=== PATIENT | female | born 1950 | race Caucasian/White ===

== ENCOUNTER 2017-08-04 18:40 | Emergency (ER) | payer MEDICARE, OTHER ==
[~2017-08-04] VITALS: Ht 167.6 cm; Wt 75.0 kg
[~2017-08-04 18:40] MED LIST: AMLO2.5T PO; ASPI-1198 PO; BENA20TA3 PO; CARV25 PO; GABA300C PO; NALT50TA10 PO; SERT50TA12 PO; TOPI25 PO; TRAZ-147 PO; ZOLP5 PO
[2017-08-04] MEDS ORDERED: LISI-660 PO (19:01)
[2017-08-04] MEDS ORDERED: LOPERAMIDE HCL 2 MG CAPSULE PO ONE (19:15)
[2017-08-04] MEDS ORDERED: SODIUM CHLORIDE 0.9% 1,000 ML IV ONE (19:15)
[2017-08-04 19:38] LABS: BASOPHILS % (AUTO) 0.7 % (0.0-2.0); EOSINOPHILS % (AUTO) 2.2 % (1.0-6.0); HEMATOCRIT 37.9 % (36-46); HEMOGLOBIN 13.4 g/dL (12.0-16.0); LYMPHOCYTES # (AUTO) 1.3 K/uL (1.0-4.8); LYMPHOCYTES % (AUTO) 29.4 % (22.0-44.0); MEAN CORPUSCULAR HEMOGLOBIN 33.9 pg (26.0-34.0); MEAN CORPUSCULAR HGB CONC 35.2 G/dL (31.0-37.0); MEAN CORPUSCULAR VOLUME 96 fL (80-100); MONOCYTES # (AUTO) 0.4 K/uL (0.1-1.0); MONOCYTES % (AUTO) 8.8 % (2.0-9.0); NEUTROPHILS # (AUTO) 2.6 K/uL (1.8-7.7); NEUTROPHILS % (AUTO) 58.9 % (40.0-70.0); PLATELET COUNT (AUTO) 101 K/uL (150-450); RED BLOOD CELL COUNT(AUTO) 3.94 MIL/uL (4.00-5.20); RED CELL DISTRIBUTION WIDTH 13.5 % (11.5-14.5); WHITE BLOOD COUNT (AUTO) 4.5 K/uL (4.5-11.0)
[2017-08-04 19:44] LABS: CALCIUM, TOTAL 8.7 mg/dL (8.8-10.5); CREATININE 1.1 mg/dL (0.60-1.30); POTASSIUM 3.5 mmol/L (3.5-5.1)
[2017-08-04 19:55] LABS: ALBUMIN 3.1 g/dL (3.4-5.0); BILIRUBIN,TOTAL 1.3 mg/dL (0.1-1.0); TOTAL PROTEIN, SERUM 8.2 g/dL (6.4-8.2)
[2017-08-04 20:25] VITALS: BP 110/71
== END 2017-08-04 21:24 | disposition home or self-care (01) ==
LOC: EMS 18:42
DX: E86.0 Dehydration (principal); R19.7 Diarrhea, unspecified; R53.1 Weakness
CPT/HCPCS: 36415; 80053; 85025; 93005; 96360; 96361; 99285; J7030

== ENCOUNTER 2019-09-19 13:01 | Inpatient (IN) | payer MEDICARE, OTHER ==
[~2019-09-19] VITALS: Ht 165.1 cm; Wt 82.8 kg
[~2019-09-19 13:01] MED LIST changes: -AMLO2.5T PO; +AMLO2.5T4 PO; +BENA20TA10 PO; -BENA20TA3 PO; +LISI-660 PO; -TRAZ-147 PO; +TRAZ-220 PO
[2019-09-19 13:53] LABS: GLUCOSE,POINT OF CARE 176 MG/DL (70-110)
[2019-09-19 14:55] LABS: BASOPHILS % (AUTO) 1.4 % (0.0-2.0); EOSINOPHILS % (AUTO) 2.4 % (1.0-6.0); HEMATOCRIT 42.3 % (36-46); HEMOGLOBIN 14.5 g/dL (12.0-16.0); LYMPHOCYTES # (AUTO) 1.3 K/uL (1.0-4.8); LYMPHOCYTES % (AUTO) 26.2 % (22.0-44.0); MEAN CORPUSCULAR HEMOGLOBIN 33.9 pg (26.0-34.0); MEAN CORPUSCULAR HGB CONC 34.2 G/dL (31.0-37.0); MEAN CORPUSCULAR VOLUME 99 fL (80-100); MONOCYTES # (AUTO) 0.5 K/uL (0.1-1.0); MONOCYTES % (AUTO) 9.3 % (2.0-9.0); NEUTROPHILS # (AUTO) 3.1 K/uL (1.8-7.7); NEUTROPHILS % (AUTO) 60.7 % (40.0-70.0); PLATELET COUNT (AUTO) 118 K/uL (150-450); RED BLOOD CELL COUNT(AUTO) 4.28 MIL/uL (4.00-5.20); RED CELL DISTRIBUTION WIDTH 14.1 % (11.5-14.5)
[2019-09-19 15:10] LABS: ANION GAP 11 mmol/L (8-16); CARBON DIOXIDE 22 mmol/L (22-29); CHLORIDE 106 mmol/L (98-107); POTASSIUM 3.8 mmol/L (3.5-5.1); SODIUM SERUM 139 mmol/L (136-145)
[2019-09-19 15:45] LABS: ALANINE AMINOTRANSFERASE 52 U/L (12-78); ALBUMIN 2.9 g/dL (3.4-5.0); ALKALINE PHOSPHATASE 111 U/L (46-116); ASPARTATE AMINOTRANSFERASE 87 U/L (15-37); BILIRUBIN,TOTAL 1.4 mg/dL (0.1-1.0); CALCIUM, TOTAL 8.5 mg/dL (8.8-10.5); CREATINE KINASE, TOTAL ONLY 57 U/L (26-192); CREATININE 0.91 mg/dL (0.60-1.30); GLOMERULAR FILTR. RATE CALC > 60 mL/min (>60); GLUCOSE,RANDOM 160 mg/dL (70-110); TOTAL PROTEIN, SERUM 8.4 g/dL (6.4-8.2)
[2019-09-19 15:46] LABS: FREE T4 (FREE THYROXINE) 1.16 ng/dL (0.76-1.46); LIPASE 222 U/L (73-393); THYROID STIMULATING HORMONE 5.04 uIU/mL (0.36-3.74)
[2019-09-19 15:51] LABS: UREA NITROGEN, BLOOD 13 mg/dL (7-18)
[2019-09-19 16:07] LABS: LACTIC ACID 3.1 mmol/L (0.4-2.0)
[2019-09-19] MEDS ORDERED: SODIUM CHLORIDE 0.9% 2,000 ML IV ONE (16:15)
[2019-09-19] MEDS ORDERED: ACETAMINOPHEN 325 MG TABLET PO PRN ×2 (17:30→22:45)
[2019-09-19] MEDS ORDERED: ONDANSETRON HCL 4 MG/2 ML VIAL IVP PRN (17:30)
[2019-09-19] MEDS ORDERED: CefTRIAXone 1 GM/DEXTROSE 50 ML IV ONE (18:45)
[2019-09-19 19:53] LABS: APPEARANCE,URINE CLOUDY (CLEAR); BILIRUBIN,URINE NEGATIVE (NEGATIVE); GLUCOSE, URINE (UA) NEGATIVE (NEGATIVE); KETONES,URINE NEGATIVE (NEGATIVE); LEUKOCYTE ESTERASE ,URINE LARGE (NEGATIVE); NITRATE,URINE NEGATIVE (NEGATIVE); OCCULT BLOOD,URINE TRACE (NEGATIVE); PROTEIN,URINE NEGATIVE (NEGATIVE)
[2019-09-19 19:59] LABS: AMPHET/METH SCREEN,URINE NEGATIVE (NEGATIVE); BARBITURATE SCREEN, URINE NEGATIVE (NEGATIVE); BENZODIAZEPINES SCREEN,URINE NEGATIVE (NEGATIVE); CANNABINOID SCREEN,URINE POSITIVE (NEGATIVE); COCAINE SCREEN,URINE NEGATIVE (NEGATIVE); METHADONE SCREEN, URINE NEGATIVE (NEGATIVE); OPIATE SCREEN,URINE NEGATIVE (NEGATIVE); PHENCYCLIDINE SCREEN,URINE NEGATIVE (NEGATIVE)
[2019-09-19 20:37] LABS: WBC,URINE 51-100 /HPF (0-5)
[2019-09-19 20:38] LABS: BACTERIA,URINE Few /HPF (None Seen); RBC,URINE 0-2 /HPF (0-2); SQUAMOUS EPITHELIAL CELL,UR Few /LPF (None Seen)
[2019-09-19 21:45] VITALS: BP 141/71
[2019-09-19] MEDS ORDERED: ZOLPIDEM TARTRATE 5 MG TABLET PO PRN (22:45)
[2019-09-19] MEDS ORDERED: 0.9% SODIUM CHLORIDE 10 ML SYRINGE IVP PRN (22:45)
[2019-09-19] MEDS ORDERED: TraZODone HCL 100 MG TABLET PO SCH (23:00)
[2019-09-19] MEDS ORDERED: NALTREXONE HCL 50 MG TABLET PO SCH (23:00)
[2019-09-19] MEDS: SODIUM CHLORIDE 0.9% 1,000 ML IV SCH (23:17)
[2019-09-19] MEDS: HEPARIN SODIUM,PORCINE 5,000 UNITS/ML VIAL SQ SCH (23:17)
[2019-09-19] MEDS: CARVEDILOL 25 MG TABLET PO SCH (23:25)
[2019-09-19 23:30] VITALS: BP 145/65
[2019-09-20 05:21] VITALS: BP 102/48
[2019-09-20 07:25] LABS: BASOPHILS % (AUTO) 1.1 % (0.0-2.0); EOSINOPHILS % (AUTO) 2.9 % (1.0-6.0); HEMATOCRIT 35.8 % (36-46); HEMOGLOBIN 12.3 g/dL (12.0-16.0); LYMPHOCYTES # (AUTO) 1.1 K/uL (1.0-4.8); LYMPHOCYTES % (AUTO) 35.3 % (22.0-44.0); MEAN CORPUSCULAR HEMOGLOBIN 33.7 pg (26.0-34.0); MEAN CORPUSCULAR HGB CONC 34.2 G/dL (31.0-37.0); MEAN CORPUSCULAR VOLUME 99 fL (80-100); MONOCYTES # (AUTO) 0.4 K/uL (0.1-1.0); NEUTROPHILS # (AUTO) 1.5 K/uL (1.8-7.7); NEUTROPHILS % (AUTO) 48.7 % (40.0-70.0); RED BLOOD CELL COUNT(AUTO) 3.64 MIL/uL (4.00-5.20); RED CELL DISTRIBUTION WIDTH 13.9 % (11.5-14.5)
[2019-09-20 07:32] LABS: PLATELET COUNT (AUTO) 101 K/uL (150-450)
[2019-09-20 07:41] LABS: CALCIUM, TOTAL 7.9 mg/dL (8.8-10.5); CREATININE 0.94 mg/dL (0.60-1.30); MAGNESIUM 1.8 mg/dL (1.80-2.40); POTASSIUM 3.8 mmol/L (3.5-5.1)
[2019-09-20] MEDS: HEPARIN SODIUM,PORCINE 5,000 UNITS/ML VIAL SQ SCH ×2 (08:00→08:40)
[2019-09-20 08:28] VITALS: BP 119/65
[2019-09-20] MEDS: DOCUSATE SODIUM 100 MG CAPSULE PO SCH ×2 (08:39→21:07)
[2019-09-20] MEDS: ASPIRIN 81 MG CHEWABLE TABLET PO SCH ×2 (08:39→09:00)
[2019-09-20] MEDS: BENAZEPRIL HCL 20 MG TABLET PO SCH (08:39)
[2019-09-20] MEDS: AmLODIPine BESYLATE 2.5 MG TABLET PO SCH (08:39)
[2019-09-20] MEDS: CARVEDILOL 25 MG TABLET PO SCH (08:39)
[2019-09-20] MEDS: PANTOPRAZOLE SODIUM 40 MG DR TABLET PO SCH (08:40)
[2019-09-20 10:56] VITALS: BP 149/74
[2019-09-20 13:30] VITALS: BP 157/71
[2019-09-20] MEDS: ONDANSETRON HCL 4 MG/2 ML VIAL IVP PRN (15:19)
[2019-09-20 15:28] LABS: INR 1.2 (0.9-1.1); PROTHROMBIN TIME 12.1 SEC (9.4-11.6)
[2019-09-20 16:00] VITALS: BP 126/60
[2019-09-20] MEDS ORDERED: SODIUM CHLORIDE 0.9% 250 ML IV ONE (19:08)
[2019-09-20] MEDS: CefTRIAXone 1 GM/DEXTROSE 50 ML IV SCH (19:09)
[2019-09-20] MEDS: SODIUM CHLORIDE 0.9% 1,000 ML IV SCH (19:32)
[2019-09-20 20:00] VITALS: BP 100/56
[2019-09-21] VITALS: BP 127/87
[2019-09-21 04:00] VITALS: BP 127/62
[2019-09-21 08:00] VITALS: BP 145/70
[2019-09-21] MEDS: DOCUSATE SODIUM 100 MG CAPSULE PO SCH ×2 (09:00→21:33)
[2019-09-21] MEDS: PANTOPRAZOLE SODIUM 40 MG DR TABLET PO SCH (09:39)
[2019-09-21] MEDS: AmLODIPine BESYLATE 2.5 MG TABLET PO SCH (09:39)
[2019-09-21] MEDS: BENAZEPRIL HCL 20 MG TABLET PO SCH (09:39)
[2019-09-21] MEDS: SODIUM CHLORIDE 0.9% 1,000 ML IV SCH (09:52)
[2019-09-21] MEDS ORDERED: NALT50TA6 PO (10:42)
[2019-09-21] MEDS ORDERED: ZOLP10TA7 PO (10:42)
[2019-09-21 12:00] VITALS: BP 158/73
[2019-09-21 16:00] VITALS: BP 160/81
[2019-09-21] MEDS: CefTRIAXone 1 GM/DEXTROSE 50 ML IV SCH (17:55)
[2019-09-21 20:00] VITALS: BP 124/89
[2019-09-21] MEDS: HydrALAZINE HCL 20 MG/ML VIAL IVP PRN (21:51)
[2019-09-22] VITALS: BP 159/68
[2019-09-22] MEDS: SODIUM CHLORIDE 0.9% 1,000 ML IV SCH ×2 (01:40→17:39)
[2019-09-22] MEDS ORDERED: SODIUM CHLORIDE 0.9% 250 ML IV ONE (01:49)
[2019-09-22] MEDS: HydrALAZINE HCL 20 MG/ML VIAL IVP PRN ×4 (03:55→22:10)
[2019-09-22 04:00] VITALS: BP 159/66
[2019-09-22] MEDS: ONDANSETRON HCL 4 MG/2 ML VIAL IVP PRN ×2 (04:19→22:10)
[2019-09-22] MEDS ORDERED: NiCARDipine HCL 25 MG in DEXTROSE 5%-WATER 240 ML IV PRN (05:43)
[2019-09-22 06:04] LABS: BASOPHILS % (AUTO) 0.9 % (0.0-2.0); EOSINOPHILS % (AUTO) 3.3 % (1.0-6.0); HEMATOCRIT 41.3 % (36-46); HEMOGLOBIN 14.1 g/dL (12.0-16.0); LYMPHOCYTES # (AUTO) 1.3 K/uL (1.0-4.8); LYMPHOCYTES % (AUTO) 19.5 % (22.0-44.0); MEAN CORPUSCULAR HEMOGLOBIN 33.3 pg (26.0-34.0); MEAN CORPUSCULAR HGB CONC 34.1 G/dL (31.0-37.0); MEAN CORPUSCULAR VOLUME 98 fL (80-100); MONOCYTES # (AUTO) 0.5 K/uL (0.1-1.0); MONOCYTES % (AUTO) 7.7 % (2.0-9.0); NEUTROPHILS # (AUTO) 4.5 K/uL (1.8-7.7); NEUTROPHILS % (AUTO) 68.6 % (40.0-70.0); PLATELET COUNT (AUTO) 139 K/uL (150-450); RED BLOOD CELL COUNT(AUTO) 4.23 MIL/uL (4.00-5.20); RED CELL DISTRIBUTION WIDTH 13.7 % (11.5-14.5)
[2019-09-22 06:14] LABS: ANION GAP 11 mmol/L (8-16); CALCIUM, TOTAL 8.3 mg/dL (8.8-10.5); CARBON DIOXIDE 21 mmol/L (22-29); CHLORIDE 107 mmol/L (98-107); CREATININE 0.85 mg/dL (0.60-1.30); GLOMERULAR FILTR. RATE CALC > 60 mL/min (>60); GLUCOSE,RANDOM 191 mg/dL (70-110); POTASSIUM 3.4 mmol/L (3.5-5.1); SODIUM SERUM 139 mmol/L (136-145); UREA NITROGEN, BLOOD 14 mg/dL (7-18)
[2019-09-22 08:00] VITALS: BP 140/61
[2019-09-22] MEDS: DOCUSATE SODIUM 100 MG CAPSULE PO SCH ×2 (09:00→20:05)
[2019-09-22] MEDS: PANTOPRAZOLE SODIUM 40 MG DR TABLET PO SCH (10:06)
[2019-09-22] MEDS: BENAZEPRIL HCL 20 MG TABLET PO SCH (10:06)
[2019-09-22] MEDS: AmLODIPine BESYLATE 2.5 MG TABLET PO SCH (10:06)
[2019-09-22] MEDS ORDERED: DIGOXIN 250 MCG/ML 2 ML AMP IVP ONE (10:30)
[2019-09-22] MEDS ORDERED: AMIODARONE HCL 150 MG in DEXTROSE 5%-WATER 97 ML IV ONE (10:45)
[2019-09-22] MEDS ORDERED: AMIODARONE HCL 360 MG in DEXTROSE 5%-WATER 242.8 ML IV ONE (11:00)
[2019-09-22] MEDS: DIGOXIN 250 MCG/ML 2 ML AMP IVP SCH ×3 (11:02→22:11)
[2019-09-22 11:30] LABS: MAGNESIUM 1.3 mg/dL (1.80-2.40); THYROID STIMULATING HORMONE 3.91 uIU/mL (0.36-3.74)
[2019-09-22 12:00] VITALS: BP 183/89
[2019-09-22] MEDS ORDERED: MAGNESIUM OXIDE 400 MG TABLET PO PRN (12:00)
[2019-09-22] MEDS ORDERED: MAGNESIUM SULFATE 2 GM/WATER 50 ML IV PRN (12:00)
[2019-09-22] MEDS ORDERED: MAGNESIUM SULFATE 4 GM/WATER 100 ML IV PRN (12:00)
[2019-09-22] MEDS: POTASSIUM CHL 10 MEQ/WATER 50 ML IV SCH ×6 (12:20→17:39)
[2019-09-22 13:19] LABS: ALBUMIN 2.9 g/dL (3.4-5.0)
[2019-09-22 16:00] VITALS: BP 176/95
[2019-09-22] MEDS ORDERED: AMIODARONE HCL 540 MG in DEXTROSE 5%-WATER 239.2 ML IV ONE (17:00)
[2019-09-22] MEDS: CefTRIAXone 1 GM/DEXTROSE 50 ML IV SCH (17:39)
[2019-09-22 20:00] VITALS: BP 174/75
[2019-09-22 20:54] LABS: POTASSIUM 3.6 mmol/L (3.5-5.1)
[2019-09-23] VITALS (8 sets, daily range): BP systolic 113–169; BP diastolic 48–111
[2019-09-23] MEDS: HydrALAZINE HCL 20 MG/ML VIAL IVP PRN ×2 (00:19→05:51)
[2019-09-23] MEDS ORDERED: SODIUM CHLORIDE 0.9% 250 ML IV ONE ×2 (03:38→17:03)
[2019-09-23] MEDS ORDERED: AMIODARONE HCL 200 MG TABLET PO SCH (09:00)
[2019-09-23] MEDS: DOCUSATE SODIUM 100 MG CAPSULE PO SCH ×2 (10:36→21:11)
[2019-09-23] MEDS: SODIUM CHLORIDE 0.9% 1,000 ML IV SCH (10:37)
[2019-09-23] MEDS: BENAZEPRIL HCL 20 MG TABLET PO SCH (10:37)
[2019-09-23] MEDS: PANTOPRAZOLE SODIUM 40 MG DR TABLET PO SCH (10:37)
[2019-09-23] MEDS: AmLODIPine BESYLATE 2.5 MG TABLET PO SCH (10:37)
[2019-09-23] MEDS ORDERED: AMIODARONE HCL 750 MG in DEXTROSE 5%-WATER 485 ML IV SCH (11:00)
[2019-09-23] MEDS: CefTRIAXone 1 GM/DEXTROSE 50 ML IV SCH (17:11)
[2019-09-23] MEDS: METOPROLOL TARTRATE 25 MG TABLET PO SCH (21:00)
[2019-09-24] MEDS: SODIUM CHLORIDE 0.9% 1,000 ML IV SCH (03:58)
[2019-09-24 04:51] VITALS: BP 125/67
[2019-09-24 07:49] VITALS: BP 160/79
[2019-09-24] MEDS: PANTOPRAZOLE SODIUM 40 MG DR TABLET PO SCH (08:37)
[2019-09-24] MEDS: AmLODIPine BESYLATE 2.5 MG TABLET PO SCH (08:37)
[2019-09-24] MEDS: METOPROLOL TARTRATE 25 MG TABLET PO SCH ×2 (08:37→20:34)
[2019-09-24] MEDS: DOCUSATE SODIUM 100 MG CAPSULE PO SCH ×2 (08:37→20:31)
[2019-09-24] MEDS: BENAZEPRIL HCL 20 MG TABLET PO SCH (08:37)
[2019-09-24 11:13] VITALS: BP 127/56
[2019-09-24 16:47] VITALS: BP 128/60
[2019-09-24] MEDS: CefTRIAXone 1 GM/DEXTROSE 50 ML IV SCH (18:52)
[2019-09-24 20:15] VITALS: BP 139/63
[2019-09-24 23:21] VITALS: BP 157/67
[2019-09-25 04:45] VITALS: BP 150/62
[2019-09-25 07:25] VITALS: BP 130/81
[2019-09-25] MEDS: DOCUSATE SODIUM 100 MG CAPSULE PO SCH (08:21)
[2019-09-25] MEDS: BENAZEPRIL HCL 20 MG TABLET PO SCH (08:22)
[2019-09-25] MEDS: AmLODIPine BESYLATE 2.5 MG TABLET PO SCH (08:22)
[2019-09-25] MEDS: PANTOPRAZOLE SODIUM 40 MG DR TABLET PO SCH (08:22)
[2019-09-25] MEDS: METOPROLOL TARTRATE 25 MG TABLET PO SCH (08:24)
[2019-09-25] MEDS ORDERED: METO25 PO (11:27)
[2019-09-25] MEDS ORDERED: AMLO2.5T4 PO ×2 (11:27→11:37)
[2019-09-25] MEDS ORDERED: BENA20TA10 PO (11:27)
[2019-09-25 11:32] VITALS: BP 140/83
[2019-09-25 15:53] VITALS: BP 147/61
[2019-09-25] MEDS: CefTRIAXone 1 GM/DEXTROSE 50 ML IV SCH (17:48)
[2019-09-25] MEDS: ONDANSETRON HCL 4 MG/2 ML VIAL IVP PRN (19:17)
== END 2019-09-25 19:45 | DRG 64 ==
LOC: EMS 13:03 → 4E 17:52 → EMS 21:20 → ICU 09-20 15:00 → 5S 09-23 14:00
PROVIDERS: ADMIT Internal Medicine; ATTEND Internal Medicine
DX: I61.8 Other nontraumatic intracerebral hemorrhage (principal); G93.41 Metabolic encephalopathy; E87.2 Acidosis; N12 Tubulo-interstitial nephritis, not specified as acute or chronic; I48.91 Unspecified atrial fibrillation; F32.9 Major depressive disorder, single episode, unspecified; I10 Essential (primary) hypertension; E87.6 Hypokalemia; D69.6 Thrombocytopenia, unspecified; G43.909 Migraine, unspecified, not intractable, without status migrainosus; F11.10 Opioid abuse, uncomplicated; E78.00 Pure hypercholesterolemia, unspecified; F17.210 Nicotine dependence, cigarettes, uncomplicated; G47.30 Sleep apnea, unspecified; Z96.651 Presence of right artificial knee joint; F10.20 Alcohol dependence, uncomplicated; F12.90 Cannabis use, unspecified, uncomplicated; E78.5 Hyperlipidemia, unspecified; Z82.49 Family history of ischemic heart disease and other diseases of the circulatory system
CPT/HCPCS: 70450; 70551; 76770; 83605; 83735; 84132; 84439; 84443; 87081; 87086; 92610; 93005; 93306; 97116; 97162; 97166; 97530; 97535; G0378; G0480; J0282; J0360; J0696; J1160; J1644; J2405; J3475; J3480; J3490; J7030; J7050; J7060

== ENCOUNTER 2019-10-26 13:30 | Inpatient (IN) | payer MEDICARE, OTHER ==
[~2019-10-26] VITALS: Ht 162.6 cm; Wt 82.7 kg
[~2019-10-26 13:30] MED LIST changes: -ASPI-1198 PO; -CARV25 PO; -GABA300C PO; -LISI-660 PO; +METO25 PO; -NALT50TA10 PO; -SERT50TA12 PO; -TRAZ-220 PO; +TRAZ-257 PO; -ZOLP5 PO
[2019-10-26] MEDS ORDERED: CLON1PAT12 TD (13:43)
[2019-10-26] MEDS ORDERED: NYSTATIN 15 GM POWDER BOTTLE TP ONE (14:45)
[2019-10-26 15:01] LABS: BASOPHILS % (AUTO) 0.7 % (0.0-2.0); EOSINOPHILS % (AUTO) 2.5 % (1.0-6.0); HEMATOCRIT 37.8 % (36-46); HEMOGLOBIN 13.1 g/dL (12.0-16.0); LYMPHOCYTES # (AUTO) 1.1 K/uL (1.0-4.8); LYMPHOCYTES % (AUTO) 34.5 % (22.0-44.0); MEAN CORPUSCULAR HEMOGLOBIN 33.9 pg (26.0-34.0); MEAN CORPUSCULAR HGB CONC 34.6 G/dL (31.0-37.0); MEAN CORPUSCULAR VOLUME 98 fL (80-100); MONOCYTES # (AUTO) 0.4 K/uL (0.1-1.0); MONOCYTES % (AUTO) 10.8 % (2.0-9.0); NEUTROPHILS # (AUTO) 1.7 K/uL (1.8-7.7); NEUTROPHILS % (AUTO) 51.5 % (40.0-70.0); RED BLOOD CELL COUNT(AUTO) 3.87 MIL/uL (4.00-5.20); RED CELL DISTRIBUTION WIDTH 14.2 % (11.5-14.5)
[2019-10-26 15:09] LABS: CALCIUM, TOTAL 8.4 mg/dL (8.8-10.5); CREATININE 1.14 mg/dL (0.60-1.30); POTASSIUM 3.7 mmol/L (3.5-5.1)
[2019-10-26] MEDS ORDERED: CLON1PAT14 TD (15:13)
[2019-10-26] MEDS ORDERED: OMEP20 PO (15:13)
[2019-10-26 15:15] LABS: ALBUMIN 2.7 g/dL (3.4-5.0); BILIRUBIN,TOTAL 1.2 mg/dL (0.1-1.0); MAGNESIUM 1.7 mg/dL (1.80-2.40); TOTAL PROTEIN, SERUM 7.3 g/dL (6.4-8.2)
[2019-10-26 15:18] LABS: INR 1.2 (0.9-1.1); PROTHROMBIN TIME 11.7 SEC (9.4-11.6)
[2019-10-26] MEDS ORDERED: MAGNESIUM SULFATE 2 GM/WATER 50 ML IV ONE (16:00)
[2019-10-26 16:06] LABS: PLATELET COUNT (AUTO) 93 K/uL (150-450)
[2019-10-26] MEDS ORDERED: CefTRIAXone 1 GM/DEXTROSE 50 ML IV ONE ×2 (17:15→23:00)
[2019-10-26] MEDS ORDERED: VANCOMYCIN HCL 1 GM/D5% WATER 200 ML IV ONE (17:15)
[2019-10-26] MEDS ORDERED: 0.9% SODIUM CHLORIDE 10 ML SYRINGE IVP PRN (18:30)
[2019-10-26] MEDS ORDERED: ACETAMINOPHEN 325 MG TABLET PO PRN ×2 (18:30→23:00)
[2019-10-26] MEDS ORDERED: ONDANSETRON HCL 4 MG/2 ML VIAL IVP PRN ×2 (18:30→23:00)
[2019-10-26 20:41] LABS: APPEARANCE,URINE CLOUDY (CLEAR); BILIRUBIN,URINE NEGATIVE (NEGATIVE); GLUCOSE, URINE (UA) NEGATIVE (NEGATIVE); KETONES,URINE NEGATIVE (NEGATIVE); LEUKOCYTE ESTERASE ,URINE MODERATE (NEGATIVE); NITRATE,URINE POSITIVE (NEGATIVE); OCCULT BLOOD,URINE NEGATIVE (NEGATIVE); PROTEIN,URINE NEGATIVE (NEGATIVE)
[2019-10-26 21:20] VITALS: BP 144/74
[2019-10-26 21:37] LABS: BACTERIA,URINE Many /HPF (None Seen); RBC,URINE None Seen /HPF (0-2); SQUAMOUS EPITHELIAL CELL,UR Moderate /LPF (None Seen); WBC,URINE 51-100 /HPF (0-5)
[2019-10-26] MEDS ORDERED: MAGNESIUM HYDROXIDE SUSPENSION 30 ML UDCUP PO PRN (23:00)
[2019-10-26] MEDS ORDERED: HYDROCODONE/ACETAMINOPHEN 5-325 MG TABLET PO PRN (23:00)
[2019-10-26] MEDS ORDERED: ZOLPIDEM TARTRATE 5 MG TABLET PO PRN (23:00)
[2019-10-26] MEDS ORDERED: MORPHINE SULFATE 2 MG/ML SYRINGE IVP PRN (23:00)
[2019-10-26] MEDS ORDERED: BISACODYL 10 MG RECTAL RECTAL SUPPOSITORY PR PRN (23:00)
[2019-10-26] MEDS ORDERED: SODIUM CHLORIDE 0.9% 1,000 ML IV ONE (23:00)
[2019-10-26] MEDS: HEPARIN SODIUM,PORCINE 5,000 UNITS/ML VIAL SQ SCH (23:52)
[2019-10-27] MEDS ORDERED: INFLUENZA VIRUS VACCINE QVS 2019-20 (3YR+)/PF 60 MCG/0.5 ML SYRINGE IM ONE (00:15)
[2019-10-27 00:20] VITALS: BP 136/60
[2019-10-27 04:37] VITALS: BP 157/57
[2019-10-27 07:37] VITALS: BP 131/55
[2019-10-27] MEDS: HEPARIN SODIUM,PORCINE 5,000 UNITS/ML VIAL SQ SCH ×3 (08:00→15:14)
[2019-10-27] MEDS: PANTOPRAZOLE SODIUM 40 MG DR TABLET PO SCH (08:22)
[2019-10-27] MEDS: DOCUSATE SODIUM 100 MG CAPSULE PO SCH ×2 (08:22→20:49)
[2019-10-27 10:48] VITALS: BP 125/54
[2019-10-27] MEDS ORDERED: SODIUM CHLORIDE 0.9% 250 ML IV ONE (15:21)
[2019-10-27 15:53] VITALS: BP 107/55
[2019-10-27] MEDS ORDERED: CefTRIAXone 1 GM/DEXTROSE 50 ML IV SCH (16:00)
[2019-10-27 19:20] VITALS: BP 111/54
[2019-10-28 04:53] VITALS: BP 149/76
[2019-10-28 06:26] LABS: BASOPHILS % (AUTO) 0.9 % (0.0-2.0); EOSINOPHILS % (AUTO) 3.6 % (1.0-6.0); HEMATOCRIT 35.9 % (36-46); HEMOGLOBIN 12.5 g/dL (12.0-16.0); LYMPHOCYTES # (AUTO) 0.8 K/uL (1.0-4.8); LYMPHOCYTES % (AUTO) 31.8 % (22.0-44.0); MEAN CORPUSCULAR HEMOGLOBIN 33.7 pg (26.0-34.0); MEAN CORPUSCULAR HGB CONC 34.7 G/dL (31.0-37.0); MEAN CORPUSCULAR VOLUME 97 fL (80-100); MONOCYTES # (AUTO) 0.3 K/uL (0.1-1.0); MONOCYTES % (AUTO) 11.6 % (2.0-9.0); NEUTROPHILS # (AUTO) 1.2 K/uL (1.8-7.7); NEUTROPHILS % (AUTO) 52.1 % (40.0-70.0); PLATELET COUNT (AUTO) 77 K/uL (150-450); RED BLOOD CELL COUNT(AUTO) 3.69 MIL/uL (4.00-5.20); RED CELL DISTRIBUTION WIDTH 14.5 % (11.5-14.5)
[2019-10-28 06:43] LABS: ANION GAP 9 mmol/L (8-16); CALCIUM, TOTAL 7.8 mg/dL (8.8-10.5); CARBON DIOXIDE 21 mmol/L (22-29); CHLORIDE 112 mmol/L (98-107); CREATININE 0.92 mg/dL (0.60-1.30); GLOMERULAR FILTR. RATE CALC > 60 mL/min (>60); GLUCOSE,RANDOM 108 mg/dL (70-110); POTASSIUM 3.6 mmol/L (3.5-5.1); SODIUM SERUM 142 mmol/L (136-145); UREA NITROGEN, BLOOD 16 mg/dL (7-18)
[2019-10-28] MEDS: HEPARIN SODIUM,PORCINE 5,000 UNITS/ML VIAL SQ SCH ×2 (08:00)
[2019-10-28 08:27] VITALS: BP 145/70
[2019-10-28] MEDS: DOCUSATE SODIUM 100 MG CAPSULE PO SCH (11:01)
[2019-10-28] MEDS: PANTOPRAZOLE SODIUM 40 MG DR TABLET PO SCH (11:01)
[2019-10-28 11:10] VITALS: BP 136/60
[2019-10-28] MEDS ORDERED: MAGNESIUM SULFATE 4 GM/WATER 100 ML IV PRN (11:30)
[2019-10-28] MEDS ORDERED: MAGNESIUM SULFATE 2 GM/WATER 50 ML IV PRN (11:30)
[2019-10-28] MEDS ORDERED: MAGNESIUM OXIDE 400 MG TABLET PO PRN (11:30)
== END 2019-10-28 14:10 | disposition short-term general hospital (02) | DRG 682 ==
LOC: EMS 13:31 → 5S 18:35
PROVIDERS: ADMIT Internal Medicine; ATTEND Internal Medicine
DX: N17.9 Acute kidney failure, unspecified (principal); G93.41 Metabolic encephalopathy; E43 Unspecified severe protein-calorie malnutrition; N39.0 Urinary tract infection, site not specified; H70.91 Unspecified mastoiditis, right ear; I10 Essential (primary) hypertension; R00.1 Bradycardia, unspecified; E83.42 Hypomagnesemia; E78.00 Pure hypercholesterolemia, unspecified; Z86.73 Personal history of transient ischemic attack (TIA), and cerebral infarction without residual deficits; Z96.651 Presence of right artificial knee joint; B37.9 Candidiasis, unspecified; Z87.891 Personal history of nicotine dependence
CPT/HCPCS: 51701; 70450; 83735; 87086; 93005; 96365; 99291; J0696; J1644; J3370; J3475; J7030; J7050